=== PATIENT | female | born 1980 | race Two or more races ===

== ENCOUNTER 2024-10-10 22:29 | Emergency (ER) | payer OTHER ==
[~2024-10-10] VITALS: Ht 154.9 cm; Wt 68.0 kg
[2024-10-10] MEDS ORDERED: SYNTHROID175 MCG PO (22:42)
[2024-10-10] MEDS ORDERED: 0.9 % SODIUM CHLORIDE 1,000 ML IV ONE (23:15)
[2024-10-10] MEDS ORDERED: FAMOtidine 10 MG/ML (4ML VIAL) IV ONE (23:15)
[2024-10-10 23:57] LABS: HEMATOCRIT 38.1 % (36.0-45.00); HEMOGLOBIN 12.7 g/dL (12.0-15.00); MEAN CORPUSCULAR HEMOGLOBIN 28.8 pg (27.00-32.0); MEAN CORPUSCULAR HGB CONC 33.5 g/dl (32.0-36.0); PLATELET COUNT 266 K/uL (150-450); RED BLOOD COUNT 4.43 M/uL (4.00-6.00); RED CELL DISTRIBUTION WIDTH 14.5 % (11.5-14.5)
[2024-10-11 00:19] LABS: INR 0.99; PARTIAL THROMBOPLASTIN TIME 30.1 SECONDS (22.0-34.0); PROTHROMBIN TIME 10.8 SECONDS (9.0-11.5)
[2024-10-11 00:38] LABS: ALBUMIN 4.2 gm/dL (3.4-5.0); ALKALINE PHOSPHATASE 115 U/L (50-136); ALT/SGPT 20 U/L (12-78); ANION GAP 8 (10.0-20.0); AST/SGOT 20 U/L (15-37); BILIRUBIN TOTAL 0.29 mg/dL (0.3-1.2); BLOOD UREA NITROGEN 8 mg/dL (7-18); BUN CREA RATIO 9 (7.0-25.0); CALCIUM 9.3 mg/dL (8.5-10.1); CARBON DIOXIDE 31 mEq/L (21-32); CHLORIDE 107 mmol/L (98-107); CREATININE SERUM 0.93 mg/dL (0.55-1.02); GLOBULINA 3.5 G/DL (2.4-3.5); GLUCOSE FASTING 100 mg/dL (65-100); OSMOLALITY SERUM 280 MOSM/KG (275-295); POTASSIUM 4.79 mEq/L (3.5-5.1); SODIUM 141 mmol/L (136-145); TOTAL PROTEIN 7.7 gm/dL (6.4-8.2)
[2024-10-11 00:39] LABS: HCG QUANTITATIVE < 1 mUI/mL (1-3)
[2024-10-11 00:58] LABS: PH,URINE 7.5 (5.0-8.0); URINE APPEARANCE Clear; URINE BILIRRUBIN Negative (NEGATIVE); URINE BLOOD Negative; URINE COLOR Yellow; URINE GLUCOSE Negative (NEGATIVE); URINE KETONE Negative (NEGATIVE); URINE LEUKOCYTE Negative; URINE NITRATE Negative; URINE PROTEIN Negative (NEGATIVE); URINE UROBILINOGEN 0.2 E.U./dl
[2024-10-11 01:02] LABS: URINE EPITHELIAL CELLS 4.7 uL (0.0-38.8); URINE WBC 3.1 uL (0.0-23.2)
[2024-10-11 01:10] LABS: URINE BACTERIA 2.4 uL (0.0-1933); URINE CAST 0.14 uL (0.0-1.40); URINE RBC 1.4 uL (0.0-20.8)
== END 2024-10-11 06:03 | disposition home or self-care (01) ==
LOC: ER 22:29
PROVIDERS: General Practice
DX: K59.01 Slow transit constipation (principal); R10.32 Left lower quadrant pain; K59.00 Constipation, unspecified; E03.8 Other specified hypothyroidism; Z88.2 Allergy status to sulfonamides
CPT/HCPCS: 36415; 74177; Q9965